=== PATIENT | male | born 1990 | race Two or more races ===

== ENCOUNTER 2023-11-01 01:42 | Emergency (ER) | payer OTHER ==
[~2023-11-01] VITALS: Ht 172.7 cm; Wt 59.1 kg
[2023-11-01 02:29] VITALS: BP 138/80; PULSE 92; RESP 16; TEMP 98.2; O2SAT 96
[2023-11-01] MEDS ORDERED: BACIOIN15 TOP (02:35)
[2023-11-01] MEDS ORDERED: CEPH500C PO (02:35)
[2023-11-01] MEDS ORDERED: IBUP-1456 PO (02:35)
[2023-11-01] MEDS ORDERED: BACITRACIN TOP OINT 1 UD PKG TOP ONE (02:45)
[2023-11-01] MEDS ORDERED: KETOROLAC TROMETH 60MG/2ML VIAL IM ONE (02:45)
== END 2023-11-01 02:49 | disposition home or self-care (01) ==
LOC: ER 01:42
DX: T23.251A Burn of second degree of right palm, initial encounter (principal); F15.10 Other stimulant abuse, uncomplicated; T75.09XA Other effects of lightning, initial encounter; Y93.89 Activity, other specified; Y92.89 Other specified places as the place of occurrence of the external cause; Y99.8 Other external cause status
CPT/HCPCS: 16020; 96372; 99283; J1885

== ENCOUNTER 2024-02-06 10:02 | Emergency (ER) | payer OTHER ==
[~2024-02-06] VITALS: Ht 167.6 cm; Wt 60.2 kg
[~2024-02-06 10:02] MED LIST: BACIOIN15 TOP; CEPH500C PO; IBUP-1456 PO
[2024-02-06 12:43] VITALS: BP 155/79; PULSE 82; RESP 12; TEMP 97.9; O2SAT 99
[2024-02-06] MEDS ORDERED: NAP500T PO (13:00)
[2024-02-06] MEDS: KETOROLAC TROMETH 30 MG/ML 1ML VIAL IM ONE (13:34)
== END 2024-02-06 13:47 | disposition home or self-care (01) ==
LOC: ER 10:02
DX: M79.18 Myalgia, other site (principal); F17.210 Nicotine dependence, cigarettes, uncomplicated; F12.10 Cannabis abuse, uncomplicated; Z79.899 Other long term (current) drug therapy; V09.9XXA Pedestrian injured in unspecified transport accident, initial encounter; Y93.01 Activity, walking, marching and hiking; Y92.240 Courthouse as the place of occurrence of the external cause; Y99.8 Other external cause status
CPT/HCPCS: 96372; 99283; J1885